=== PATIENT | female | born 1960 | race Caucasian/White ===

== ENCOUNTER 2016-09-30 12:47 | Inpatient (IN) | payer MEDICAID ==
[~2016-09-30] VITALS: Ht 170.2 cm; Wt 65.3 kg
[2016-09-30] MEDS ORDERED: DEXTROSE 50%-WATER 25 GM/50 ML SYRINGE IVP ONE ×2 (13:08→13:15)
[2016-09-30] MEDS ORDERED: DEXTROSE 5%-0.9% SODIUM CHL 1,000 ML IV ONE ×2 (13:30→15:15)
[2016-09-30 13:37] LABS: GLUCOSE,POINT OF CARE 195 MG/DL (70-110)
[2016-09-30 13:56] LABS: BASOPHILS # (AUTO) 0.01 K/uL (0.00-0.20); BASOPHILS % (AUTO) 0.1 % (0.0-2.0); EOSINOPHILS % (AUTO) 0.04 % (1.0-6.0); HEMATOCRIT 26.7 % (36-46); HEMOGLOBIN 8.1 g/dL (12.0-16.0); LYMPHOCYTES # (AUTO) 1.1 K/uL (1.0-4.8); LYMPHOCYTES % (AUTO) 8.6 % (22.0-44.0); MEAN CORPUSCULAR HEMOGLOBIN 35.4 pg (26.0-34.0); MEAN CORPUSCULAR HGB CONC 30.2 G/dL (31.0-37.0); MEAN CORPUSCULAR VOLUME 117 fL (80-100); MONOCYTES # (AUTO) 0.5 K/uL (0.1-1.0); MONOCYTES % (AUTO) 4.1 % (2.0-9.0); NEUTROPHILS # (AUTO) 10.7 K/uL (1.8-7.7); PLATELET COUNT (AUTO) 104 K/uL (150-450); RED BLOOD CELL COUNT(AUTO) 2.28 MIL/uL (4.00-5.20); RED CELL DISTRIBUTION WIDTH 23.1 % (11.5-14.5); WHITE BLOOD COUNT (AUTO) 12.3 K/uL (4.5-11.0)
[2016-09-30] MEDS ORDERED: SODIUM CHLORIDE 0.9% 1,000 ML IV ONE ×2 (14:00→15:00)
[2016-09-30 14:03] LABS: NEUTROPHILS % (AUTO) 87.2 % (40.0-70.0)
[2016-09-30 14:07] LABS: INR 1.6 (0.9-1.1); PROTHROMBIN TIME 16.6 SEC (9.4-11.6)
[2016-09-30 14:09] LABS: RBC MORPHOLOGY COMMENT ABNORMAL RBC MORPH
[2016-09-30 14:13] LABS: TROPONIN I 0.09 ng/mL (0.00-0.05)
[2016-09-30] MEDS ORDERED: PANTOPRAZOLE SODIUM 80 MG in SODIUM CHLORIDE 0.9% 500 ML IV SCH (14:30)
[2016-09-30] MEDS ORDERED: PANTOPRAZOLE SODIUM 40 MG/VIAL IVP ONE (14:30)
[2016-09-30 14:31] LABS: ALBUMIN 1.8 g/dL (3.4-5.0); BILIRUBIN,TOTAL 7.2 mg/dL (0.1-1.0); CALCIUM, TOTAL 7.1 mg/dL (8.8-10.5); CREATINE KINASE MB 6.2 ng/mL (0-5); CREATININE 1.87 mg/dL (0.60-1.30); TOTAL PROTEIN, SERUM 5.1 g/dL (6.4-8.2)
[2016-09-30 14:51] LABS: GLUCOSE,POINT OF CARE 201 MG/DL (70-110)
[2016-09-30] MEDS ORDERED: RAPID SEQUENCE KIT [RSI] 1 EACH KIT ONE ×2 (15:18)
[2016-09-30] MEDS ORDERED: SUCCINYLCHOLINE CHLORIDE 20 MG/ML 10 ML VIAL ONE (15:18)
[2016-09-30] MEDS ORDERED: PHENYLEPHRINE 200 MG/D5%-WATER 250 ML IV PRN (15:45)
[2016-09-30] MEDS ORDERED: LORazepam 2 MG/ML VIAL ONE (15:49)
[2016-09-30] MEDS ORDERED: ROCURONIUM BROMIDE 10 MG/ML 5 ML VIAL ONE (15:49)
[2016-09-30] MEDS ORDERED: NOREPINEPHRINE 4 MG/D5%-WATER 250 ML IV ONE ×2 (15:50→18:28)
[2016-09-30] MEDS ORDERED: MORPHINE SULFATE 2 MG/ML SYRINGE IVP PRN (16:00)
[2016-09-30] MEDS ORDERED: ONDANSETRON HCL 4 MG/2 ML VIAL IVP PRN (16:00)
[2016-09-30] MEDS ORDERED: ACETAMINOPHEN 325 MG TABLET PO PRN (16:00)
[2016-09-30] MEDS ORDERED: ROCURONIUM BROMIDE 10 MG/ML 5 ML VIAL IVP ONE (16:00)
[2016-09-30] MEDS ORDERED: LORazepam 2 MG/ML VIAL IVP ONE (16:00)
[2016-09-30] MEDS ORDERED: MAGNESIUM SULFATE 2 GM, MVI, ADULT NO.1 WITH VIT K 10 ML, THIAMINE HCL 100 MG, FOLIC AC... IV ONE ×5 (16:00)
[2016-09-30] MEDS ORDERED: MAGNESIUM HYDROXIDE SUSPENSION 30 ML UDCUP PO PRN (16:00)
[2016-09-30] MEDS ORDERED: SODIUM BICARBONATE 100 MEQ in SODIUM CHLORIDE 0.45% 1,000 ML IV ONE (16:00)
[2016-09-30] MEDS ORDERED: ZOLPIDEM TARTRATE 5 MG TABLET PO PRN (16:00)
[2016-09-30] MEDS ORDERED: BISACODYL 10 MG RECTAL RECTAL SUPPOSITORY PR PRN (16:00)
[2016-09-30] MEDS ORDERED: HYDROCODONE/ACETAMINOPHEN 5-325 MG TABLET PO PRN (16:00)
[2016-09-30] MEDS ORDERED: NOREPINEPHRINE 4 MG/D5%-WATER 250 ML IV PRN (16:00)
[2016-09-30] MEDS ORDERED: SODIUM BICARBONATE [ADULT] 8.4% 50 MEQ/50 ML SYRINGE IVP ONE ×3 (16:15→17:30)
[2016-09-30] MEDS ORDERED: DOPamine HCL 400 MG/D5%-WATER 250 ML IV PRN (16:15)
[2016-09-30] MEDS ORDERED: SODIUM CHLORIDE 0.9% 500 ML IV ONE ×2 (16:17→18:11)
[2016-09-30 16:45] LABS: HEMATOCRIT 17.2 % (36-46)
[2016-09-30] MEDS ORDERED: VASOPRESSIN 100 UNITS in DEXTROSE 5%-WATER 245 ML IV PRN (16:45)
[2016-09-30 17:04] LABS: ABG A-A DIFF O2 302.7 mmHg (10-20.0); ABG BASE EXCESS -28.3 mmol/L (-2.0-3.0); ABG OXYHEMOGLOBIN 87.4 % (94.0-100.0); ABG PCO2 34 mmHg (35-45); TEMPERATURE, FAHRENHEIT, BG 91.4 FAHREN (96.0-98.6)
[2016-09-30 17:07] LABS: ABG HCO3 4.8 mmol/L (22.0-26.0); ABG PH 6.846 (7.35-7.450)
[2016-09-30] MEDS: SODIUM BICARBONATE 150 MEQ in DEXTROSE 5%-WATER 1,000 ML IV SCH ×2 (17:33→17:45)
[2016-09-30] MEDS: OCTREOTIDE ACETATE 500 MCG in DEXTROSE 5%-WATER 97.5 ML IV SCH (17:49)
[2016-09-30] MEDS ORDERED: SODIUM CHLORIDE 0.9% 250 ML IV ONE (18:11)
[2016-09-30] MEDS ORDERED: NOREPINEPHRINE BITARTRATE 16 MG in DEXTROSE 5%-WATER 234 ML IV PRN (18:15)
[2016-09-30] MEDS ORDERED: PHENYLEPHRINE HCL 800 MG in DEXTROSE 5%-WATER 170 ML IV PRN (18:15)
[2016-09-30] MEDS: DOPamine HCL 800 MG/D5%-WATER 250 ML IV PRN (18:33)
[2016-09-30] MEDS ORDERED: SODIUM CITRATE 4% CATH FLUSH 5 ML SYRINGE IVP PRN ×2 (19:30)
[2016-09-30 19:49] LABS: CREATINE KINASE MB 13.5 ng/mL (0-5)
[2016-09-30 20:00] VITALS: BP_SYST 92; BP_SYST 99; BP_DIAS 38; BP_DIAS 42
[2016-09-30 20:15] VITALS: BP 90/38
[2016-09-30 20:30] VITALS: BP 89/38
[2016-09-30 21:00] VITALS: BP 89/38
[2016-09-30] MEDS ORDERED: DOCUSATE SODIUM 100 MG CAPSULE PO SCH (21:00)
[2016-09-30] MEDS: POTASSIUM CHLORIDE 20 MEQ in NXSTAGE RFP-402 K0/CA3 5,000 ML IRRIG PRN ×2 (21:29→23:50)
[2016-10-01] VITALS (12 sets, daily range): BP systolic 58–85; BP diastolic 19–33
[2016-10-01] MEDS ORDERED: PANTOPRAZOLE SODIUM 80 MG in SODIUM CHLORIDE 0.9% 500 ML IV SCH ×2
[2016-10-01 00:08] LABS: HEMATOCRIT 16.8 % (36-46); HEMOGLOBIN 5.2 g/dL (12.0-16.0)
[2016-10-01 00:13] LABS: ABG A-A DIFF O2 356.8 mmHg (10-20.0); ABG BASE EXCESS -29.6 mmol/L (-2.0-3.0); ABG OXYHEMOGLOBIN 75.1 % (94.0-100.0); ABG PCO2 26 mmHg (35-45); ABG PH 6.854 (7.35-7.450)
[2016-10-01] MEDS ORDERED: SODIUM CHLORIDE 0.9% 500 ML IV ONE ×2 (00:32→06:58)
[2016-10-01 00:42] LABS: CREATININE 1.8 mg/dL (0.60-1.30); MAGNESIUM 2.2 mg/dL (1.80-2.40); PHOSPHORUS 7.9 mg/dL (2.5-4.9)
[2016-10-01 00:53] LABS: POTASSIUM 6.3 mmol/L (3.5-5.1)
[2016-10-01] MEDS: SODIUM BICARBONATE 150 MEQ in DEXTROSE 5%-WATER 1,000 ML IV SCH ×2 (01:24→05:46)
[2016-10-01] MEDS: OCTREOTIDE ACETATE 500 MCG in DEXTROSE 5%-WATER 97.5 ML IV SCH (01:30)
[2016-10-01] MEDS: POTASSIUM CHLORIDE 10 MEQ in NXSTAGE RFP-402 K0/CA3 5,000 ML IRRIG PRN ×2 (01:31→05:47)
[2016-10-01 05:27] LABS: BASOPHILS % (AUTO) 0.1 % (0.0-2.0); EOSINOPHILS # (AUTO) 0.02 K/uL (0.00-0.70); EOSINOPHILS % (AUTO) 0.43 % (1.0-6.0); LYMPHOCYTES # (AUTO) 0.6 K/uL (1.0-4.8); LYMPHOCYTES % (AUTO) 13.8 % (22.0-44.0); MEAN CORPUSCULAR HEMOGLOBIN 30.5 pg (26.0-34.0); MEAN CORPUSCULAR HGB CONC 33.4 G/dL (31.0-37.0); MEAN CORPUSCULAR VOLUME 91 fL (80-100); MONOCYTES % (AUTO) 0.9 % (2.0-9.0); NEUTROPHILS # (AUTO) 3.6 K/uL (1.8-7.7); NEUTROPHILS % (AUTO) 84.8 % (40.0-70.0); RED BLOOD CELL COUNT(AUTO) 1.59 MIL/uL (4.00-5.20); RED CELL DISTRIBUTION WIDTH 14.9 % (11.5-14.5)
[2016-10-01 05:39] LABS: WHITE BLOOD COUNT (AUTO) 4.8 K/uL (4.5-11.0)
[2016-10-01 05:40] LABS: HEMOGLOBIN 4.8 g/dL (12.0-16.0)
[2016-10-01 05:41] LABS: HEMATOCRIT 14.5 % (36-46)
[2016-10-01] MEDS: DOPamine HCL 800 MG/D5%-WATER 250 ML IV PRN (05:46)
[2016-10-01] MEDS ORDERED: EPINEPHrine 1:10,000 [1 MG/10 ML] SYRINGE IVP ONE (07:20)
[2016-10-01] MEDS ORDERED: SODIUM BICARBONATE [ADULT] 8.4% 50 MEQ/50 ML SYRINGE IVP ONE (07:20)
[2016-10-01] MEDS ORDERED: DOPamine HCL/D5W 400 MG/250 ML IV BAG IV ONE (07:20)
[2016-10-01] MEDS ORDERED: PANTOPRAZOLE SODIUM 40 MG DR TABLET PO SCH (09:00)
[2016-10-01 09:42] LABS: PLATELET COUNT (AUTO) 21 K/uL (150-450)
== END 2016-10-01 07:21 | disposition expired | DRG 173 ==
LOC: EDUNIT# 12:47 → EMS 12:51 → EDBD 12:51 → ICU 15:58
PROVIDERS: ADMIT Internal Medicine; ATTEND Internal Medicine
PROC: 5A1945Z Respiratory Ventilation, 24-96 Consecutive Hours (ICD-10-PCS; principal; 2016-09-30)
PROC: 0BH17EZ Insertion of Endotracheal Airway into Trachea, Via Natural or Artificial Opening (ICD-10-PCS; 2016-09-30)
PROC: 5A1D00Z (ICD-10-PCS; 2016-09-30)
PROC: 30233N1 Transfusion of Nonautologous Red Blood Cells into Peripheral Vein, Percutaneous Approach (ICD-10-PCS; 2016-09-30)
PROC: 03HY32Z Insertion of Monitoring Device into Upper Artery, Percutaneous Approach (ICD-10-PCS; 2016-09-30)
PROC: 04HL33Z Insertion of Infusion Device into Left Femoral Artery, Percutaneous Approach (ICD-10-PCS; 2016-09-30)
PROC: 5A12012 Performance of Cardiac Output, Single, Manual (ICD-10-PCS; 2016-10-01)
DX: R57.9 Shock, unspecified (principal); J96.00 Acute respiratory failure, unspecified whether with hypoxia or hypercapnia; I46.9 Cardiac arrest, cause unspecified; N17.0 Acute kidney failure with tubular necrosis; K72.91 Hepatic failure, unspecified with coma; E43 Unspecified severe protein-calorie malnutrition; D68.9 Coagulation defect, unspecified; I95.9 Hypotension, unspecified; K92.2 Gastrointestinal hemorrhage, unspecified; E87.4 Mixed disorder of acid-base balance; K74.60 Unspecified cirrhosis of liver; F10.20 Alcohol dependence, uncomplicated; D64.9 Anemia, unspecified; F17.290 Nicotine dependence, other tobacco product, uncomplicated; N18.9 Chronic kidney disease, unspecified; F12.90 Cannabis use, unspecified, uncomplicated; E86.0 Dehydration; E16.2 Hypoglycemia, unspecified; I12.9 Hypertensive chronic kidney disease with stage 1 through stage 4 chronic kidney disease, or unspecified chronic kidney disease; R56.9 Unspecified convulsions; Z68.22 Body mass index [BMI] 22.0-22.9, adult; Z91.02 Food additives allergy status; Z79.899 Other long term (current) drug therapy
CPT/HCPCS: 31500; 36556; 51702; 70450; 82805; 82948; 82962; 83735; 84100; 85014; 85018; 86850; 86900; 86901; 86920; 87040; 87081; 87340; 90947; 92950; 93005; 94002; 94003; 96361; 96365; 96366; 96368; 96375; 99291; 99292; C9113; G0480; J0171; J0330; J1265; J2060; J2354; J2370; J3411; J3475; J3480; J3490; J7030; J7040; J7042; J7050; J7060; P9016